=== PATIENT | male | born 1950 | race Caucasian/White ===

== ENCOUNTER 2020-02-01 06:35 | Outpatient (CLI) | payer MEDICARE, OTHER ==
--- NOTE | 2020-02-01 10:07 | Ultrasound Report ---
Reason: LE PX BELOW THE KNEE Procedure Date: 02/01/2020 Accession Number: [id number] / [id number] Procedure: US - Ankle Brachial Index CPT Code: Final Report FULL RESULT: PROCEDURE: Ankle Brachial Index INDICATIONS: LE PX BELOW THE KNEE TECHNIQUE: Ankle-brachial indices were obtained bilaterally and recorded. Pulse color Doppler interrogation performed of the posterior tibialis and dorsalis pedis arteries bilaterally. COMPARISONS: None. FINDINGS: Right brachial blood pressure: 139/65 Right ankle blood pressure: 173/79 Right ankle brachial index (MARCIO): 1.2 Left brachial blood pressure: 142/77 Left ankle blood pressure: 172/78 Left ankle brachial index (MARCIO): 1.2 Doppler: Right posterior tibialis artery: 99 cm/s, triphasic waveforms Right dorsalis pedis artery: 86 cm/s, triphasic waveforms Left posterior tibialis artery: 91 cm/s, triphasic waveforms Left dorsalis pedis artery: 93 cm/s, triphasic waveforms Healing potential: Ankle pressures >55 mm Hg in non-diabetics and >80 mm Hg in diabetics are likely to achieve primary healing of ischemic foot ulcers. IMPRESSION: 1. Ankle brachial indices within normal limits bilaterally. 2. Normal triphasic waveforms demonstrated within the dorsalis pedis and posterior tibialis arteries. Reviewed by: Anish Neal MD on 02/01/2020 10:05 AM PDT Approved by: Anish Neal MD on 02/01/2020 10:05 AM PDT Station ID: [id number]
== END 2020-02-01 06:36 | disposition home or self-care (01) ==
LOC: DI 06:35
PROVIDERS: ATTEND Family Medicine
DX: M79.662 Pain in left lower leg (principal)
CPT/HCPCS: 93922

== ENCOUNTER 2020-06-18 10:45 | Outpatient (CLI) | payer MEDICARE, OTHER ==
--- NOTE | 2020-06-18 12:11 | XRAY Report ---
PROCEDURE: Ribs 3 View BILAT INDICATIONS: INJURY TO RIBS LOW BACK TECHNIQUE: 3 views of the right ribs were acquired after placement of a rounded metallic marker eladia cating area of maximal right-sided lower rib pain. COMPARISON: FINDINGS: Surgical changes and devices: None. Bones and chest wall: There is a rib fracture laterally on the right near the area of the plain film surface marker placed in the region of maximal tenderness right lower lateral chest. This has an appe arance that could represent a chronic healed fracture.. No suspicious bony lesions. Overlying soft tissues appear unremarkable. Lungs and pleura: The visualized lung appears clear. No pleural effusions or pneumothorax are visib le. IMPRESSION: A definite acute fracture is not found. However, a recent distortion is present near the plain film s urface marker placed in the area of maximal tenderness at the lateral right lower ribs and therefore this could represent evidence of a acute rather than chronic rib fracture in that area. However, coin cidental positioning near an old fracture also could explain this appearance. Obtaining delayed plain films generally can't differentiate between chronic versus acute injury. Reviewed by: Micky French MD on 06/18/2020 12:10 PM PDT Approved by: Micky French MD on 06/18/2020 12:10 PM PDT Station ID: [id number]
--- NOTE | 2020-06-18 12:15 | XRAY Report ---
PROCEDURE: Lumbar Spine 2 View INDICATIONS: INJURY TO RIBS LOW BACK TECHNIQUE: 2 views of the lumbar spine were acquired. COMPARISON: None. FINDINGS: Bones: 5 [id number] vertebrae are present. There is mildly abnormal bony alignment with slight convex leftward scoliosis centered at L2. No vertebral body compression fractures. No suspicious b jeremie lesions. Note is made of a mild to moderate degree of L1-2 and L2-3 degenerative disc disease. L 3-4 through L5-S1 shows moderately severe degenerative disc disease and progressively greater facet o steoarthritis as the L5-S1 level is reached. Prominent hyperostosis at the facet joints reduce neural foraminal caliber at these 2 levels bilaterally, and both spinal and foraminal stenosis would be wicho pected at L4-5 and L5-S1. Soft tissues: Overlying bowel gas pattern is normal. No suspicious soft tissue calcifications. IMPRESSION: Degenerative disc disease, moderately severe from L3 inferiorly and there is moderately severe to severe degenerative changes from L3 inferiorly. Spinal and foraminal stenosis would be expe cted at L4-5 and L5-S1. Reviewed by: Micky French MD on 06/18/2020 12:14 PM PDT Approved by: Micky French MD on 06/18/2020 12:14 PM PDT Station ID: [id number]
== END 2020-06-18 10:46 | disposition home or self-care (01) ==
LOC: DI 10:45
PROVIDERS: ATTEND Physician Assistant Medical
DX: R93.7 Abnormal findings on diagnostic imaging of other parts of musculoskeletal system (principal); M51.36 Other intervertebral disc degeneration, lumbar region; M51.37 Other intervertebral disc degeneration, lumbosacral region; M47.817 Spondylosis without myelopathy or radiculopathy, lumbosacral region
CPT/HCPCS: 71110; 72100

== ENCOUNTER 2020-11-18 08:48 | Outpatient (CLI) | payer MEDICARE, OTHER ==
--- NOTE | 2020-11-18 09:26 | XRAY Report ---
PROCEDURE: Chest 2 View X-Ray INDICATIONS: SHORTNESS OF BREATH TECHNIQUE: 2 view(s) of the chest. COMPARISON: None. FINDINGS: Surgical changes and devices: None. Lungs and pleura: No pleural effusions or pneumothorax. Lungs are clear. Mediastinum: Mediastinal contours are normal. Heart size is normal. Bones and chest wall: No suspicious bony abnormalities. Soft tissues appear unremarkable. IMPRESSION: No acute pulmonary process. Reviewed by: Carolina Khan MD on 11/18/2020 9:25 AM PDT Approved by: Carolina Khan MD on 11/18/2020 9:25 AM PDT Station ID: [id number]
== END 2020-11-18 08:49 | disposition home or self-care (01) ==
LOC: DI.N 08:48
PROVIDERS: ATTEND Nurse Practitioner Family
DX: R06.09 Other forms of dyspnea (principal)
CPT/HCPCS: 36415; 80053; 83880; 84443; 85025

== ENCOUNTER 2020-11-18 09:15 | Outpatient (CLI) | payer MEDICARE, OTHER ==
[2020-11-18 11:32] LABS: BASOPHILS % (AUTO) 0.3 %; EOSINOPHILS # (AUTO) 0.1 10^3/uL (0.0-0.7); HCT - HEMATOCRIT 45.3 % (42.0-52.0); HGB - HEMOGLOBIN 15.9 g/dL (14.0-18.0); LYMPHOCYTES # (AUTO) 1.8 10^3/uL (1.5-3.5); LYMPHOCYTES % (AUTO) 20.2 %; MEAN CORPUSCULAR HEMOGLOBIN 36.7 pg (27.0-31.0); MEAN CORPUSCULAR HGB CONC 35.1 g/dL (32.0-36.0); MEAN CORPUSCULAR VOLUME 104.6 fL (80.0-94.0); MEAN PLATELET VOLUME 10.7 fL (7.4-11.4); MONOCYTES # (AUTO) 1.2 10^3/uL (0.0-1.0); MONOCYTES % (AUTO) 13.3 %; NEUTROPHILS # (AUTO) 5.6 10^3/uL (1.5-6.6); NEUTROPHILS % (AUTO) 64.2 %; PLT - PLATELET COUNT 166 10^3/uL (130-450); RED BLOOD COUNT 4.33 10^6/uL (4.70-6.10); RED CELL DISTRIBUTION WIDTH 12.9 % (12.0-15.0); WHITE BLOOD COUNT 8.7 x10^3/uL (4.8-10.8)
[2020-11-18 11:44] LABS: BILIRUBIN,TOTAL 1.9 mg/dL (0.2-1.0); CALCIUM 10.3 mg/dL (8.5-10.3); CREATININE 1.7 mg/dL (0.6-1.2); POTASSIUM 3.9 mmol/L (3.5-5.0); TOTAL PROTEIN 7.9 g/dL (6.7-8.2)
== END 2020-11-18 09:16 | disposition home or self-care (01) ==
LOC: LAB.N 09:15
PROVIDERS: ATTEND Nurse Practitioner Family
DX: R06.09 Other forms of dyspnea (principal)
CPT/HCPCS: 36415; 80053; 83880; 84443; 85025

== ENCOUNTER 2021-05-02 08:00 | Outpatient (CLI) | payer MEDICARE, OTHER ==
--- NOTE | 2021-05-02 11:15 | XRAY Report ---
PROCEDURE: Abdomen 2 View X-Ray INDICATIONS: LLQ PAIN, NO BM X 2 DAYS TECHNIQUE: 1 view of the abdomen were acquired. COMPARISON: None FINDINGS: Surgical changes and devices: None. Bowel: No pneumoperitoneum. The bowel gas pattern is normal. There is a normal amount of solid sto ol present in the rectum. No significant fecal load. Soft tissues: No masses; visualized solid organ contours appear normal in size. Scattered vascular c alcifications. No suspicious abdominal calcifications. Bones: No suspicious bony abnormalities. Multilevel degenerative disc height loss and endplate spur formation. IMPRESSION: 1. Normal quantity of stool. No significant obstipation. 2. Degenerative change in the spine. Reviewed by: Alessandra Nicole MD on 05/02/2021 11:13 AM PDT Approved by: Alessandra Nicole MD on 05/02/2021 11:13 AM PDT Station ID: [id number]
== END 2021-05-02 23:59 | disposition home or self-care (01) ==
LOC: DI.N 08:00
PROVIDERS: ATTEND Physician Assistant Medical
DX: K57.92 Diverticulitis of intestine, part unspecified, without perforation or abscess without bleeding (principal); M47.819 Spondylosis without myelopathy or radiculopathy, site unspecified

== ENCOUNTER 2021-05-02 10:35 | Outpatient (CLI) | payer MEDICARE, OTHER ==
[2021-05-02 13:36] LABS: BASOPHILS % (AUTO) 0.4 %; EOSINOPHILS % (AUTO) 0.1 %; HCT - HEMATOCRIT 38.9 % (42.0-52.0); HGB - HEMOGLOBIN 13.3 g/dL (14.0-18.0); LYMPHOCYTES # (AUTO) 0.9 10^3/uL (1.5-3.5); LYMPHOCYTES % (AUTO) 10.8 %; MEAN CORPUSCULAR HEMOGLOBIN 34.5 pg (27.0-31.0); MEAN CORPUSCULAR HGB CONC 34.2 g/dL (32.0-36.0); MEAN CORPUSCULAR VOLUME 100.8 fL (80.0-94.0); MEAN PLATELET VOLUME 9.3 fL (7.4-11.4); MONOCYTES # (AUTO) 0.9 10^3/uL (0.0-1.0); MONOCYTES % (AUTO) 10.7 %; NEUTROPHILS # (AUTO) 6.2 10^3/uL (1.5-6.6); NEUTROPHILS % (AUTO) 76.5 %; PLT - PLATELET COUNT 210 10^3/uL (130-450); RED BLOOD COUNT 3.86 10^6/uL (4.70-6.10); RED CELL DISTRIBUTION WIDTH 13.9 % (12.0-15.0); WHITE BLOOD COUNT 8.1 x10^3/uL (4.8-10.8)
[2021-05-02 13:55] LABS: ALBUMIN 4.5 g/dL (3.2-5.5); ALBUMIN/GLOBULIN RATIO 1.1 (1.0-2.2); BILIRUBIN,TOTAL 1.2 mg/dL (0.2-1.0); CALCIUM 10.8 mg/dL (8.5-10.3); CREATININE 1.7 mg/dL (0.6-1.2); POTASSIUM 4.9 mmol/L (3.5-5.0); TOTAL PROTEIN 8.6 g/dL (6.7-8.2)
== END 2021-05-02 23:59 | disposition home or self-care (01) ==
LOC: LAB.N 10:35
PROVIDERS: ATTEND Physician Assistant Medical
DX: K57.92 Diverticulitis of intestine, part unspecified, without perforation or abscess without bleeding (principal)
CPT/HCPCS: 36415; 80048; 80053; 83690; 85025

== ENCOUNTER 2021-05-08 11:44 | Outpatient (CLI) | payer MEDICARE, OTHER ==
[2021-05-08 18:16] LABS: BASOPHILS % (AUTO) 0.4 %; EOSINOPHILS # (AUTO) 0.1 10^3/uL (0.0-0.7); EOSINOPHILS % (AUTO) 0.6 %; HCT - HEMATOCRIT 31.9 % (42.0-52.0); HGB - HEMOGLOBIN 11.2 g/dL (14.0-18.0); LYMPHOCYTES # (AUTO) 1.4 10^3/uL (1.5-3.5); LYMPHOCYTES % (AUTO) 17.3 %; MEAN CORPUSCULAR HEMOGLOBIN 36.4 pg (27.0-31.0); MEAN CORPUSCULAR HGB CONC 35.1 g/dL (32.0-36.0); MEAN CORPUSCULAR VOLUME 103.6 fL (80.0-94.0); MEAN PLATELET VOLUME 9.4 fL (7.4-11.4); MONOCYTES # (AUTO) 1.5 10^3/uL (0.0-1.0); MONOCYTES % (AUTO) 18.5 %; NEUTROPHILS # (AUTO) 4.9 10^3/uL (1.5-6.6); NEUTROPHILS % (AUTO) 60.6 %; PLT - PLATELET COUNT 286 10^3/uL (130-450); RED BLOOD COUNT 3.08 10^6/uL (4.70-6.10); RED CELL DISTRIBUTION WIDTH 13.3 % (12.0-15.0); WHITE BLOOD COUNT 8.1 x10^3/uL (4.8-10.8)
== END 2021-05-08 23:59 | disposition home or self-care (01) ==
LOC: LAB.N 11:44
PROVIDERS: ATTEND Physician Assistant Medical
DX: K92.1 Melena (principal)
CPT/HCPCS: 36415; 85025

== ENCOUNTER 2021-05-09 12:31 | Outpatient (CLI) | payer MEDICARE, OTHER ==
[2021-05-09 17:49] LABS: FECAL OCCULT BLOOD (FIT) POSITIVE (NEGATIVE)
[2021-05-09 18:01] LABS: H. PYLORIS ANTIGEN STL NEGATIVE (Negative)
== END 2021-05-09 23:59 | disposition home or self-care (01) ==
LOC: LAB.N 12:31
PROVIDERS: ATTEND Physician Assistant Medical
DX: K92.1 Melena (principal)
CPT/HCPCS: 82274; 87338

== ENCOUNTER 2022-06-02 10:30 | Outpatient (CLI) | payer MEDICARE, OTHER ==
--- NOTE | 2022-06-02 12:57 | XRAY Report ---
PROCEDURE: Knee 3 View BILAT INDICATIONS: BILATERAL OSTEOARTHRITIS OF KNEES TECHNIQUE: 3 views of each knee were acquired. COMPARISON: None. FINDINGS: Bones: No acute fractures or dislocations. No suspicious bony lesions. Postsurgical changes are se en from right total knee arthroplasty. Hardware components are intact without signs of loosening. Mil d joint space narrowing is seen at the left medial and lateral femorotibial compartments. Soft tissues: Small left knee joint effusion. No suspicious soft tissue calcifications. IMPRESSION: 1.Postsurgical changes from right knee arthroplasty. 2.Mild left knee osteoarthrosis. Small left knee effusion. Reviewed by: Jose Armijo MD on 06/02/2022 12:56 PM PDT Approved by: Jose Armijo MD on 06/02/2022 12:56 PM PDT Station ID: [id number]
== END 2022-06-02 10:31 | disposition home or self-care (01) ==
LOC: DI.N 10:30
PROVIDERS: ATTEND Physician Assistant
DX: M17.12 Unilateral primary osteoarthritis, left knee (principal); M25.462 Effusion, left knee; Z96.651 Presence of right artificial knee joint

== ENCOUNTER 2022-08-13 07:28 | Outpatient (CLI) | payer MEDICARE, OTHER ==
[2022-08-13 12:40] LABS: BASOPHILS % (AUTO) 0.5 %; EOSINOPHILS # (AUTO) 0.1 10^3/uL (0.0-0.7); EOSINOPHILS % (AUTO) 1.5 %; HCT - HEMATOCRIT 43.1 % (42.0-52.0); HGB - HEMOGLOBIN 14.5 g/dL (14.0-18.0); LYMPHOCYTES # (AUTO) 1.9 10^3/uL (1.5-3.5); LYMPHOCYTES % (AUTO) 30.2 %; MEAN CORPUSCULAR HEMOGLOBIN 34.7 pg (27.0-31.0); MEAN CORPUSCULAR HGB CONC 33.6 g/dL (32.0-36.0); MEAN CORPUSCULAR VOLUME 103.1 fL (80.0-94.0); MEAN PLATELET VOLUME 10.3 fL (7.4-11.4); MONOCYTES # (AUTO) 0.5 10^3/uL (0.0-1.0); MONOCYTES % (AUTO) 8.8 %; NEUTROPHILS # (AUTO) 3.5 10^3/uL (1.5-6.6); PLT - PLATELET COUNT 199 10^3/uL (130-450); RED BLOOD COUNT 4.18 10^6/uL (4.70-6.10); RED CELL DISTRIBUTION WIDTH 12.8 % (12.0-15.0); WHITE BLOOD COUNT 6.1 x10^3/uL (4.8-10.8)
[2022-08-13 12:57] LABS: THYROID STIMULATING HORMONE 1.77 uIU/mL (0.34-5.60)
[2022-08-13 12:58] LABS: ALBUMIN 3.9 g/dL (3.2-5.5); ALBUMIN/GLOBULIN RATIO 1.1 (1.0-2.2); ALKALINE PHOSPHATASE 48 IU/L (42-121); ALT ALANINE AMINOTRANSFERASE 29 IU/L (10-60); AST ASPARTATE AMINOTRANSFERASE 41 IU/L (10-42); BILIRUBIN,TOTAL 0.8 mg/dL (0.2-1.0); BUN - BLOOD UREA NITROGEN 12 mg/dL (6-20); CALCIUM 9.8 mg/dL (8.5-10.3); CARBON DIOXIDE - CO2 26 mmol/L (21-32); CHLORIDE 101 mmol/L (101-111); CHOL/HDL RATIO 3.9 (<5.0); CHOLESTEROL 205 mg/dL; GFR - MDRD 73 (>89); GLUCOSE 106 mg/dL (70-100); HDL CHOLESTEROL 53 mg/dL; LDL CHOLESTEROL,CALCULATED 103 mg/dL; LDL/HDL RATIO 1.9 (<3.6); POTASSIUM 4.5 mmol/L (3.5-5.0); SODIUM 137 mmol/L (135-145); TOTAL PROTEIN 7.4 g/dL (6.7-8.2); TRIGLYCERIDES 244 mg/dL; VLDL CHOLESTEROL 49 mg/dL
== END 2022-08-13 07:29 | disposition home or self-care (01) ==
LOC: LAB.N 07:28
PROVIDERS: ATTEND Internal Medicine Cardiovascular Disease
DX: I10 Essential (primary) hypertension (principal); E78.2 Mixed hyperlipidemia
CPT/HCPCS: 36415; 80053; 80061; 83721; 84443; 85025

== ENCOUNTER 2022-09-29 12:13 | Outpatient (CLI) | payer MEDICARE, OTHER | END 2022-09-29 12:14 | disposition home or self-care (01) | LOC: DI 12:13 | PROVIDERS: ATTEND Internal Medicine Cardiovascular Disease | DX: I50.22 Chronic systolic (congestive) heart failure (principal); I08.0 Rheumatic disorders of both mitral and aortic valves | CPT/HCPCS: 93306 ==

== ENCOUNTER 2023-01-05 10:47 | Outpatient (CLI) | payer MEDICARE, OTHER ==
[2023-01-05 17:47] LABS: ALBUMIN/GLOBULIN RATIO 1.1 (1.0-2.2); CALCIUM 9.8 mg/dL (8.5-10.3); CREATININE 1.1 mg/dL (0.6-1.2); POTASSIUM 4.5 mmol/L (3.5-5.0); TOTAL PROTEIN 7.6 g/dL (6.7-8.2)
== END 2023-01-05 10:48 | disposition home or self-care (01) ==
LOC: LAB.N 10:47
PROVIDERS: ATTEND Internal Medicine Cardiovascular Disease
DX: I25.10 Atherosclerotic heart disease of native coronary artery without angina pectoris (principal); I10 Essential (primary) hypertension
CPT/HCPCS: 36415; 80053

== ENCOUNTER 2023-06-17 09:09 | Outpatient (CLI) | payer MEDICARE, OTHER ==
[2023-06-17 12:21] LABS: CALCIUM 10.3 mg/dL (8.5-10.3); CREATININE 1.1 mg/dL (0.6-1.3); POTASSIUM 4.6 mmol/L (3.5-4.5)
== END 2023-06-17 09:10 | disposition home or self-care (01) ==
LOC: LAB.N 09:09
PROVIDERS: ATTEND Internal Medicine Cardiovascular Disease
DX: I50.42 Chronic combined systolic (congestive) and diastolic (congestive) heart failure (principal)
CPT/HCPCS: 36415; 80048

== ENCOUNTER 2023-08-24 07:16 | Outpatient (CLI) | payer MEDICARE, OTHER | END 2023-08-24 07:17 | disposition home or self-care (01) | LOC: LAB.N 07:16 | PROVIDERS: ATTEND Physician Assistant | DX: Z12.5 Encounter for screening for malignant neoplasm of prostate (principal) | CPT/HCPCS: 36415; G0103; 84153 ==

== ENCOUNTER 2024-02-21 08:55 | Outpatient (CLI) | payer MEDICARE, OTHER ==
[2024-02-21 12:21] LABS: BASOPHILS % (AUTO) 0.2 %; HCT - HEMATOCRIT 40.6 % (42.0-52.0); HGB - HEMOGLOBIN 14.2 g/dL (14.0-18.0); LYMPHOCYTES # (AUTO) 1.3 10^3/uL (1.5-3.5); LYMPHOCYTES % (AUTO) 14.5 %; MEAN CORPUSCULAR HEMOGLOBIN 36.5 pg (27.0-31.0); MEAN CORPUSCULAR VOLUME 104.4 fL (80.0-94.0); MEAN PLATELET VOLUME 9.6 fL (7.4-11.4); MONOCYTES # (AUTO) 0.4 10^3/uL (0.0-1.0); MONOCYTES % (AUTO) 4.8 %; NEUTROPHILS % (AUTO) 79.1 %; PLT - PLATELET COUNT 206 10^3/uL (130-450); RED BLOOD COUNT 3.89 10^6/uL (4.70-6.10); RED CELL DISTRIBUTION WIDTH 12.4 % (12.0-15.0); WHITE BLOOD COUNT 8.9 x10^3/uL (4.8-10.8)
[2024-02-21 12:44] LABS: ALBUMIN 4.5 g/dL (3.2-5.5); ALBUMIN/GLOBULIN RATIO 1.3 (1.0-2.2); ALKALINE PHOSPHATASE 38 IU/L (42-121); ALT ALANINE AMINOTRANSFERASE 17 IU/L (10-60); AST ASPARTATE AMINOTRANSFERASE 31 IU/L (10-42); BILIRUBIN,TOTAL 0.6 mg/dL (0.2-1.0); BUN - BLOOD UREA NITROGEN 14 mg/dL (6-20); CALCIUM 10.7 mg/dL (8.5-10.3); CARBON DIOXIDE - CO2 23 mmol/L (21-32); CHLORIDE 98 mmol/L (101-111); CHOL/HDL RATIO 2.9 (<5.0); CHOLESTEROL 204 mg/dL; CREATININE 1.1 mg/dL (0.6-1.3); GFR - MDRD 65 (>89); GLUCOSE 140 mg/dL (74-104); HDL CHOLESTEROL 70 mg/dL; LDL CHOLESTEROL,CALCULATED 119 mg/dL; LDL/HDL RATIO 1.7 (<3.6); POTASSIUM 4.7 mmol/L (3.5-4.5); SODIUM 130 mmol/L (135-145); TRIGLYCERIDES 76 mg/dL (48-352); VLDL CHOLESTEROL 15 mg/dL
[2024-02-21 15:20] LABS: THYROID STIMULATING HORMONE 0.74 uIU/mL (0.34-5.60)
== END 2024-02-21 08:56 | disposition home or self-care (01) ==
LOC: LAB.N 08:55
PROVIDERS: ATTEND Internal Medicine Cardiovascular Disease
DX: I25.10 Atherosclerotic heart disease of native coronary artery without angina pectoris (principal); E78.2 Mixed hyperlipidemia; I10 Essential (primary) hypertension
CPT/HCPCS: 36415; 80053; 80061; 83721; 84443; 85025